=== PATIENT | male | born 1965 | race Two or more races ===

== ENCOUNTER 2017-01-16 07:53 | Day surgery (SDC) | payer OTHER ==
[2017-01-14 13:53] VITALS: BMI 24.3
[~2017-01-16 07:53] MED LIST: LACTATED RINGERS 1,000 ML IV SCH
[2017-01-16 08:15] VITALS: RESP 16; TEMP 97.6
[2017-01-16] MEDS ORDERED: LIDOCAINE 1% 20 ML VIAL (10MG/ML) FOR IV START INTRADERMA ONE (08:23)
[2017-01-16] MEDS ORDERED: PROPOFOL 10 MG/ML 20 ML VIAL IV ONE (09:13)
--- NOTE | 2017-01-16 09:34 | P.PCN ---
Date of Procedure: 01/16/17 Preoperative Diagnosis: Postoperative Diagnosis: Procedure(s) Performed: Procedure: Total colonoscopy. Preoperative diagnosis: Screening for neoplasia. Postoperative diagnosis: Exam within normal limits. Preparation: HalfLytely prep. Sedation: Was provided by anesthesia. Brief clinical history: The patient is a 51-year-old male who is referred for this evaluation for screening for neoplasia, age being his risk factor. He has no abdominal complaints, bleeding or anemia. No family history of colon cancer. This would be his first colonoscopy. Procedure: With the patient on his left lateral decubitus position and after informed consent and adequate sedation, the perianal area was inspected and it did not show any fissures or fistulas. There were no masses felt on digital rectal examination. The Olympus CFQ 160L video colonoscope was then inserted in the rectum in the usual fashion and advanced to the cecum. The mucosa appeared healthy. No polyps or tumors were seen or any obvious diverticular disease. I retroflexed the endoscope in the rectum before the endoscope was withdrawn. Low-grade internal hemorrhoids were noted but there was no bleeding. The patient tolerated the procedure well. Plan: The patient was reassured. In the absence of family history of colon cancer or findings of polyps today, I am recommending repeat exam in 10 years. He will follow up with you as planned. Implants: Indications for Procedure: Operative Findings: Description of Procedure:
[2017-01-16 09:49] VITALS: BP 116/65; PULSE 55
== END 2017-01-16 10:17 | disposition home or self-care (01) ==
LOC: ORWHC2ENDO 07:53
DX: Z12.11 Encounter for screening for malignant neoplasm of colon (principal); K64.8 Other hemorrhoids; Z87.891 Personal history of nicotine dependence
CPT/HCPCS: J2704; G0121